=== PATIENT | female | born 1995 | race African-American/Black ===

== ENCOUNTER 2018-08-05 11:58 | Emergency (ER) | payer OTHER ==
[~2018-08-05] VITALS: Ht 165.1 cm; Wt 79.8 kg
[2018-08-05 14:11] VITALS: BP 109/79
== END 2018-08-05 14:23 | disposition home or self-care (01) ==
LOC: ER 11:58
DX: J03.90 Acute tonsillitis, unspecified (principal)

== ENCOUNTER → 2019-06-01 | Emergency (ER) | payer OTHER ==
[~2019-06-01] VITALS: Ht 162.6 cm; Wt 81.7 kg
[2019-06-01 20:06] VITALS: BP 124/82
== END ==
LOC: ER 17:33
DX: Z53.21 Procedure and treatment not carried out due to patient leaving prior to being seen by health care provider (principal)